=== PATIENT | female | born 1950 | race Caucasian/White ===

== ENCOUNTER 2016-07-18 08:15 | Outpatient (RCR) | payer MEDICARE ==
--- NOTE | 2016-07-05 10:46 | PT/OT/ST INITIAL EVALUATION ---
Department of Health and Human Services Form Approved [facility] Care Financing Administration OMB No. [id number] PLAN OF CARE/ASSESSMENT FOR OUTPATIENT REHABILITATION (Complete for Initial Claims Only) 1. PATIENT'S NAME Stacy Patel 2. ACC # [id number] 3. [facility] [id number] 4. PROVIDER NO. [id number] 5. TYPE: PT 6. PRIOR HOSPITALIZATION None 7. PRIMARY DX Low back pain 8. SECONDARY DX Left hip and radicular symptoms 9. ONSET DATE Approximately 1 month ago 10. REFERRAL DATE 06/30/2016 11. SOC. DATE 07/04/2016 12. TIME OF EVAL 10:00 a.m. 12. REFERRING PHYSICIAN Dr. Gerhard Abarca 13. CHARGES/UNITS Evaluation, manual therapy, Therex and E-stim. 14. G CODES CJ 15. PRIOR LEVEL OF FUNCTION; PERTINENT HISTORY (Prior therapy results, reason for referral.) S: Reason for referral: The patient was referred to physical therapy by Dr. Abarca with the diagnosis of low back pain and trochanteric bursitis. Description/mechanism of injury: The patient reports that she has been experiencing pain at her left low back for approximately 1 month. She does report having some radicular symptoms into her left hip and leg. She feels this is a result of overuse and increased activity. The patient reports having a long history of off and on again back pain. The patient does get some relief normally when stretching and exercising. The patient notes the symptoms are worse with any type of prolonged sitting, or when going from sitting to standing. Social history: The patient is retired. Leisure activities: Include swimming, cooking, reading and gardening. Activity level: Moderate. Personal health rating: Excellent. Pain level: Current pain rating is 7/10. The patient describes the pain as a dull ache, which increases to a sharp pain with certain movements. Relieving factors: She gets some relief when using heat. Diagnostic testing: The patient reports x-rays were taken in the doctor's office. Past medical history: Includes arthritis, bone fractures, allergies, depression, and colon cancer. The patient has also previously had a left hip scope 5 years ago for a torn labrum. Current medications: Aleve and vitamins. Previously the patient had cortisone injections without any relief. Patient's Goal: The patient's goal for therapy is to relieve pain. 16. INITIAL ASSESSMENT/SAFETY PRECAUTIONS/MEDICAL COMPLICATIONS (Level of function at start of care. Be specific, use objective measures, list problems.) O: APPEARANCE, OBSERVATION AND GAIT: The patient is a slender, 65-year-old female. She demonstrates forward head posture, mildly rounded shoulders. Minimal lordosis at her lumbar region with an anterior pelvic tilt. PALPATION: The patient has tenderness to palpation along her left lumbar paraspinals with gentle posterior to anterior mobilizations. The patient had increased pain at L5 and S1 region. Decreased pain was noted with gentle manual traction. RANGE OF MOTION/FLEXIBILITY: Trunk range of motion-flexion 30%, extension 70%. Bilateral side bending was normal limits with pain when going to the left. Rotation was 70% to both left and right. Hamstring flexibility 45 degrees on the right and 49 degrees on the left. Bilateral single knee to chest normal limits. Piriformis flexibility was minimally limited on the left. The patient also had left hip flexor tightness and moderate limitation at left IT band. STRENGTH: Normal limits bilaterally except for left hip abduction was 4/5 manual muscle test. TODAY'S TREATMENT: Treatment included initial evaluation followed by instruction of home exercise program. Manual mobilization and manual traction was performed to the patient's lumbar spine region. The treatment was ended with pre-mod electric stim to the patient's left SI and glute region. 17. INITIAL POC: (Specify procedures, modalities, short and terminal operator goals) A: The patient presents with low back pain with some radicular symptoms in the patient's left hip and leg. PROGNOSIS: The patient is a good candidate for physical therapy to regain range of motion, flexibility, and strength. SHORT TERM GOALS: 1. The patient to be compliant with home exercise program in 2 weeks. 2. The patient to demonstrate 70% trunk range of motion in all directions without pain in 3 weeks. 3. The patient to demonstrate half a muscle grade improvement in left hip strength in 4 weeks. 4. The patient to be able to go from sitting to standing without pain at her back in 4 weeks. 5. The patient to report that she is able to walk her dog for greater than a mile without having pain at her back in 6 weeks. P: The patient will be seen 2 times a week over the next 6 weeks. Treatment to include Modalities and manual therapy to decrease pain and inflammation. We will progress the patient with range of motion, flexibility, stabilization and light strengthening activities as tolerated. 18. FREQUENCY 19. DURATION 20. FUNCTIONAL LEVEL (End of claim period) 21. PHYSICIAN SIGNATURE ? ON FILE OR ENTER HERE: 22. DATE: I certify the need for these services furnished under this plan of care and if for partial hospitalization. 23. CERTIFICATION FROM THROUGH FORM [id number]
[~2016-07-18 08:15] MED LIST: CHOL400C8 PO; CYAN100088 PO; CYAN250014 PO; ESCI10TA49 PO; ESTR0.3T PO; HRT; OMEP20TA33 PO; PROG100C6 PO
== END 2016-08-14 12:50 | disposition home or self-care (01) ==
LOC: PT 08:15
PROVIDERS: ATTEND Family Medicine
DX: M54.5 Low back pain (principal); R29.898 Other symptoms and signs involving the musculoskeletal system
CPT/HCPCS: 97110; 97140; 97161; G0283; G8981; G8982; 97014